=== PATIENT | male | born 1955 | race Caucasian/White ===

== ENCOUNTER 2016-09-30 05:31 | Inpatient (IN) | payer OTHER, MEDICAID ==
--- NOTE | 2016-09-28 13:08 | PCM.ANEPRE ---
Anesthesia Pre-Op Review Reason for Review: kidney function Anesthesia Recommendations: See Anesthesia Orders Additional Comments Stable CKD due to hypertension also has atrophic right kidney, last Cr 1.4. 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 No other preoperative issues. Patient's family concerned regarding IV solution's salt content during surgery. Not an issue with intraoperative LR/ Saline and his stable renal function. Benny Valentino MD Sep 28, 2016 13:08
[2016-09-30] VITALS (23 sets, daily range): BP systolic 89–131; BP diastolic 42–78; PULSE 51–90; RESP 10–20; O2SAT 91–98
[~2016-09-30] VITALS: Ht 162.6 cm; Wt 83.1 kg
[~2016-09-30 05:31] MED LIST: AMLO5TAB2 PO; ATEN25TA PO; CHOL10008 PO; FLAX100038 PO; HYDR-3825 PO; LEVO75TA4 PO; OMEG1CAP56 PO; SIMV40TA5 PO; SODI650T PO; ZOLP5TAB6 PO
[2016-09-30] MEDS: Lactated Ringer's 1,000 ML IV SCH ×4 (05:57→10:00)
[2016-09-30] MEDS ORDERED: CeFAZolin Inj 2 GM in IV Premix 1 EACH IV ONE (06:00)
[2016-09-30] MEDS ORDERED: Clindamycin Inj 900 MG in IV Premix 1 EACH IV ONE (06:00)
[2016-09-30 06:55] LABS: BASOPHILS % (AUTO) 0.2 % (0-3); EOSINOPHILS % (AUTO) 3.3 % (0-5); Mean Corpuscular Hemoglobin 32.1 pg (27.0-35.0); Mean Corpuscular Volume 100.3 fL (81-100); NEUTROPHILS % (AUTO) 56.3 % (40-74); Platelet Count 177 bil/L (150-400)
--- NOTE | 2016-09-30 07:22 | PCM.HPANE ---
Patient Data Surgeon Admitting Provider: Attending Provider:Jean Claude Leonard MD Primary Care Physician:Keisha Other Provider:Enrrique Conde Anesthesia Reason for Visit Malignant Neoplasm Of Connective And Soft Tissue O Ht/WT & BMI Height (Feet): 5 Height (Inches): 4 Weight (Kilograms): 82.2 Body Mass Index 30.00 Allergies Uncoded Allergies: ADHESIVE TAPES (Allergy, Unknown, blisters, 03/12/16) Past Anesthesia History Anesthesia History: Denies:: Abnormal Airway, Anesthesia Reactions, Difficult Intubation, Fam Anesthesia Reaction, Fam Malignant Hypertherm, Malignant Hyperthermia Diabetes History Hx Diabetes?: No MRSA MRSA: No Medications Hypertension Medication: Yes Home Meds Incl Beta Sissy: Yes (atenolol) Date Beta Sissy Taken: Sep 29, 2016 Time Beta Sissy Taken: 1800 Reported Medications Flaxseed Oil ([place]-3 Flaxseed Oil)1,000 Mg Capsule1,000 Mg PO BID 09/28/16 [place]-3 Fatty Acids/Fish Oil ([place] 3 1,000 mg Softgel)1 Each Capsule1 Each PO BID 09/28/16 Zolpidem 5 Mg Tablet5 Mg PO HS PRN For Insomnia Ref 0 09/28/16 Cholecalciferol (Vitamin D3) (Vitamin D3)1,000 Unit Tab.chew1,000 Unit PO BID 09/28/16 Sodium Bicarbonate 650 Mg Tablet1,300 Mg PO TID 09/28/16 Simvastatin 40 Mg [id number] Mg PO HS 30 Days Ref 0 09/28/16 Levothyroxine 75 Mcg Wejmzx15 Mcg PO DAILY Ref 0 09/28/16 Hydrocodone-Acetaminophen 7.5-325 mg 1 Each Tablet1 Tablet PO TID PRN For Pain Ref 0 09/28/16 Atenolol 25 Mg Undipb36 Mg PO HS #30 TABLET Ref 0 09/28/16 Amlodipine 5 Mg Tablet5 Mg PO BID Ref 0 09/28/16 Discontinued Reported Medications Zolpidem (Ambien)5 Mg Tablet5 Mg PO HS PRN For Insomnia Ref 0 08/03/16 [place]-3/Dha/Epa/Fish Oil (Fish Oil 1,000 mg Softgel)1 Each Capsule1 Each PO BID 04/19/16 Flaxseed Oil ([place]-3 Flaxseed Oil)1,000 Mg Capsule1,000 Mg PO BID 04/19/16 Simvastatin 40 Mg Skhjyr21 Mg PO HS Ref 0 03/12/16 Cholecalciferol (Vitamin D3) (Vitamin D3)2,000 Unit Capsule2,000 Unit PO BID 02/20/16 Sodium Bicarbonate 650 Mg Tablet2 Tab PO TID 02/20/16 Levothyroxine 75 Mcg Troabr37 Mcg PO DAILY Ref 0 02/20/16 Hydrocodone-Acetaminophen 7.5-325 mg 1 Each Tablet1 Tablet PO BID-TID Ref 0 02/20/16 Atenolol 25 Mg [id number] Mg PO DAILY #30 TABLET Ref 0 02/20/16 Amlodipine 5 Mg Tablet5 Mg PO BID Ref 0 02/20/16 History History of ENT Problems?: No HEENT History: Denies:: Abnormal Airway Difficult Intubation Dysphagia Hearing Problem Sinus Problem Hx of Heart Problems?: Yes Cardiovascular History: Positive for:: Hypertension Denies:: AICD Atrial Fibrillation Cardiac Surgery Chest Pain Congestive Heart Failure Edema Heart Murmur Irregular Heartbeat Pacemaker Rheumatic Fever Thrombophlebitis Valvular Heart Disease Other Cardiac History: port in place- recent chemotherapy Hx of Respiratory Problem?: No Respiratory History: Denies:: Asthma COPD Chest Surgery Cough Dyspnea Emphysema Hemoptysis Oxygen Administration Pneumonia Tuberculosis Use of C-PAP Machine Hx Neurologic Problems?: No Neurological History: Denies:: Alzheimer's Disease CVA Dementia Dizziness Headaches Parkinson's Disease Seizures Hx of GI Problems?: No Gastrointestinal History: Denies:: Cirrhosis Diverticulitis Gastroesphageal Reflux Gastrointestinal Bleeding Heartburn Hepatitis Hiatal Hernia Rectal Bleeding Hx of Problems?: Yes Genitourinary History: Denies:: HX of Hemodialysis (CKD stage III, atrophic right kidney/ left kidney 50%) Kidney Stones Urinary Tract Infection Other Pertinent History: congential bladder extrophy with reconstruction- urinary diversion to sigmoid colon. Reconstructed penis- DOES NOT URINATE thru penis Male Hx: Denies:: Prostate Problems Skin History: Denies:: History Skin Disorders? Pressure Ulcers Hx Musculoskeletal Problems?: Yes Musculoskeletal History: Positive for:: Back Injury (chronic back pain) Musculoskeletal Trauma (hx of left leg ORIF- ) Denies:: Joint Replacement Hx of Psycho/Social Problems?: Yes Psycho Social History: Positive for:: Hx Depression Denies:: Anxiety Hx Surgeries?: Yes (Leg, arm/plates, and ankle/pins all left. urinary diversion to sigmoid) Hx Any Other Health Problems?: Yes Other History: Positive for:: Cancer (recurrent suprapubic , bladder) Hospitalization Thyroid Disease Denies:: Endocrine Disease History Blood Transfusions: Denies:: Blood Transfusions Hx Diabetes: No Hx Alcohol Use: NoHx Substance Use: No Smoking Status: Former Smoker Have You Smoked inLast 12 mo: No Stop/Bang S-Snoring: Do You Snore Loudly: No T-Tired: feel tired, fatigued: No O-Obsered: Observed not breath: No P-Blood Pressure: treated: Yes B- Body Mass Index > 35 kg/m2: No A- Age over 50: Yes N- Neck Large Circumference: No G- Gender Male: Yes PARMJIT Total Score: 3 Risk Assessment Category Category 1A: Patient has history of documented sleep apnea, and HAS NOT received any narcotic, sedative or anesthesia administration during this stay. Category 1B: Patient has history of documented sleep apnea, and HAS received any narcotic , sedative or anesthesia administration during this stay Category 2: Patient has SUSPECTED Obstructive Sleep Apnea, and HAS received any narcotic , sedative or anesthesia administration during this stay. Category 3: Patient has SUSPECTED Obstructive Sleep Apnea and HAS NOT received narcotic, sedative or anesthesia administration during this stay. Category 4: Outpatient in Procedural Areas with known sleep apnea or who screen positive for High Risk via the STOP/BANG questionnaire. Exam Exam Vital Signs Vital Signs Date Time Temp Pulse Resp B/P Pulse Ox O2 Delivery O2 Flow Rate FiO2 09/30/16 06:10 36 60 16 127/74 92 Room Air General Appearance: Alert, Oriented X3, Cooperative HEENT/AIRWAY: MP 2, Neck Movement (from), Mouth Opening (wnl) Lungs: Clear to Auscultation Heart: Exam Unremarkable Meds/Labs/Diagnostics Admission Meds Current Medications Lactated Ringer's (Lr) 1,000 ml @ 120 mls/hr Q8H20M IV Last administered on t 05:57; Start 09/30/16 at 05:00; Stop 09/30/16 at 13:19 Labs Test 09/30/16 06:40 White Blood Count 5.2th/mm3 (3.8-10.1) Red Blood Count 3.74mil/mm3 (4.40-5.80) Hemoglobin 12.0g/dL (13.8-17.2) Hematocrit 37.5% (41.0-50.0) Mean Corpuscular Volume 100.3fL (81-100) Mean Corpuscular Hemoglobin 32.1pg (27.0-35.0) Mean Corpuscular Hemoglobin Concent 32.0% (32.0-37.0) Red Cell Distribution Width 12.0% (12.3-15.4) Platelet Count 177bil/L (150-400) Neutrophils (%) (Auto) 56.3% (40-74) Lymphocytes (%) (Auto) 29.0% (14-46) Monocytes (%) (Auto) 11.0% (4-12) Eosinophils (%) (Auto) 3.3% (0-5) Basophils (%) (Auto) 0.2% (0-3) Plan Impression Patient chart reviewed, patient interviewed and anesthestic plan with risks, benefits, and alternatives discussed, and informed consent obtained. NPO Status: 09/30/16 sip water with pills ASA Physical Status: ASA2 Mod Systemic Disease Anesthetic Plan: GA Bene/Risks/Altern/Consents: Yes HP Complete Prior to Induction: Yes Other There is a 51% chance a flap is not done per surgeon. If Flap is done patient the plan is to put in epidural in PACU for post op pain. Vinicio Rivera MD Sep 30, 2016 07:21
[2016-09-30] MEDS ORDERED: Acetaminophen IV 1,000 MG in IV Premix 1 EACH IV PRN (08:00)
[2016-09-30] MEDS ORDERED: hydrOXYzine Inj 50 MG/1 mL SDV IM PRN (09:20)
[2016-09-30] MEDS ORDERED: Atropine 0.4 mg/mL Inj IVPUSH PRN (09:20)
[2016-09-30] MEDS ORDERED: Phenylephrine 10,000 mCg/mL Inj IVPUSH PRN (09:20)
[2016-09-30] MEDS ORDERED: hydrALAZINE 20 mg/mL Inj IVPUSH PRN (09:20)
[2016-09-30] MEDS ORDERED: fentaNYL-PF 50 mCg/mL 2 mL Inj IVPUSH PRN (09:20)
[2016-09-30] MEDS ORDERED: HYDROmorphone 1 mg/mL Inj IVPUSH PRN (09:20)
[2016-09-30] MEDS ORDERED: EPHEDrine Sulfate 50 mg/mL Inj IVPUSH PRN (09:20)
[2016-09-30] MEDS ORDERED: Labetalol 5 mg/mL 4 mL Inj IV PRN (09:20)
[2016-09-30] MEDS ORDERED: Dexamethasone 4 mg/mL Inj IVPUSH PRN (09:20)
[2016-09-30] MEDS ORDERED: Ondansetron 2 mg/mL 2 mL Inj IVPUSH PRN ×2 (09:20→10:50)
[2016-09-30] MEDS ORDERED: EPHEDrine Sulfate 50 mg/mL Inj IM PRN (09:20)
[2016-09-30] MEDS ORDERED: Lactated Ringer's 500 ML IV PRN (09:20)
[2016-09-30] MEDS ORDERED: MetoCLOpramide 5 mg/mL 2 mL Inj IVPUSH PRN (10:50)
[2016-09-30] MEDS ORDERED: HYDROmorphone PCA 0.2 mg/mL 30 mL Inj IV PRN (10:55)
[2016-09-30] MEDS ORDERED: HYDROmorphone 0.5 mg/0.5 mL iSecure Syringe IVPUSH PRN (10:55)
--- NOTE | 2016-09-30 11:07 | PCM.SURGOP ---
Surgical Operative Report Date of Service: Sep 30, 2016 Pre Operative Diagnosis Bladder remnant carcinoma, history of bladder exstrophy Post Operative Diagnosis Same Procedure: Penectomy with en bloc excision of abdominal wall carcinoma, abdominal wall reconstruction with mesh Surgeon and Educational Speech Language Clinician: Surgeon: Daniele Souza MD Assistants: Jean Claude Leonard MD; Taisha Olivares PA-C Indication for Procedure 61-year-old man who was born with bladder exstrophy, and underwent resection of the bladder with abdominal wall reconstruction, as well as ureteral implantation into his sigmoid colon. He then presented with an abdominal wall mass, and this was partially excised with an R1 resection by Dr. Margarita Huntley. 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 He was then treated with chemotherapy with carboplatin and Taxol, but there was no significant clinical response. He had a PET/CT which demonstrated a 6 cm hypodense mass in the area of prior resection down to the penile base with hypermetabolic activity measuring 10.3. After discussion of risks and benefits , he agreed to proceed with excision of his abdominal wall tumor, possible penectomy. Dr. Leonard was involved for possible abdominal wall reconstruction with a rotational myocutaneous flap if necessary. Findings: Frozen sections from lateral, superior, posterior, and skin margins were all negative. The abdominal wall defect measured 8 cm transverse by 10 synovators craniocaudal. The tumor was clinically adherent to the base of the penis and urethra, so penectomy was performed en bloc. Procedure Details After smooth induction of general endotracheal anesthesia, he was placed in the supine position with both arms out, and was prepped and draped in wide sterile fashion. A procedural pause was performed according to the SCOAP checklist, and all were found to be in agreement. Dissection began with an elliptical skin incision, encompassing the prior sinus tract and scar, down to the base of the penis. Skin flaps were raised laterally on both sides. Dissection was carried out through the subcutaneous tissue superiorly. The preperitoneal space was entered, where there was quite a bit of adhesive disease from his prior abdominal wall reconstruction. The sigmoid colon was not visualized. Dissection carried down inferiorly on both sides to the pubic bone. There was quite a bit of vascularity toward the penis on both sides of the pubic bone, controlled with hemoclips, but there was a moderate amount of blood loss during this portion of dissection. Inferiorly, dissection was difficult on the base of the penis, and there was no obvious plane of safe dissection between the penis and the tumor. The spermatic cord structures were visualized and preserved on both sides inferiorly. Because the tumor was clinically adherent with no clear plane between it and the urethra and corpora cavernosa, the decision was made to proceed with penectomy. The corpora were encircled on both sides with clamps. The corpora was divided, and mass ligated with an 0 silk suture ligature on both sides. The vas deferens was dissected free on both sides. The end of the vas was ligated on both sides with an 0 silk suture, and it was divided. The urethra was dissected free from the subcutaneous tissues, which ultimately was a blind-ending structure, although small amount of urethral tissue was left in the preperitoneal space. The staying side was ligated with an 0 silk suture. The skin incision was extended around the base of the penis on the scrotal side circumferentially. Using electrocautery, dissection was carried through the subcutaneous tissue down to the perineal body, which was divided with cautery. En bloc dissection was carried out on all sides until the mass was circumferentially dissected free from the preperitoneal space, and complete penectomy had been performed. Frozen sections were obtained. The specimen was oriented personally with Dr. Noel. Frozen sections were obtained from both lateral aspects, posterior tissue, and the skin edges. All frozen sections were negative for carcinoma. The fascial defect from the edge of his prior abdominal wall reconstruction superiorly down to the perineal body was 10 cm craniocaudal, and the transverse defect from one pubic bone to the other was 8 cm transverse. Reconstruction was performed using the 4.5 inch (11.4 cm circular) Ventralight mesh. This was sutured to the perineal body, the pubic bone, and the edge of his abdominal wall fascial tissue circumferentially using interrupted 0 Nurolon sutures. The mesh was in excellent position. A 19 [place] round Nikhil drain was brought out through the skin on the left side of the scrotum, and secured to the skin with a 3-0 nylon suture. The subcutaneous tissue was irrigated and suctioned. At this point, Dr. Leonard performed complex layered closure of the abdominal wall and scrotum. Please see his separate dictated operative report for full details of the procedure. The abdominal wall incision and scrotum were closed in a Z-plasty. The skin incision was closed with a 4-0 Monocryl running subcuticular stitch. Dermabond was applied to the skin as a dressing. At the end of the case all needle and sponge counts were correct 2. The patient was awakened from anesthesia without difficulty, and taken to the recovery room in satisfactory condition, having tolerated the procedure well. Complications There were no periprocedural complications identified. Surgical Specimen Removed: Yes Specimen sent to Pathology: Yes Surgical Specimen description: Penectomy with en bloc resection of abdominal wall tumor Anesthetic Plan: GA Grafts, Implants: Implants-See Implant Record Output, Estimated Blood Loss: 250 Blood Administration during jaimes: No Drains: CLARIBEL Drain #1 Catheters: None copies to: Demond Brewster MD; Krysten Yusuf PA-C; Margarita Huntley MD, Joshua D MD Sep 30, 2016 11:07
[2016-09-30] MEDS ORDERED: Bupivacaine 0.5%/EPI 50 mL Inj INFILTRATE ONE (11:12)
--- NOTE | 2016-09-30 12:05 | PCM.ANEP1 ---
Post Anesthesia Phase 1 PACU Phase 1 Assessment Date of Service: Sep 30, 2016 Vital Signs Vital Signs Date Time Temp Pulse Resp B/P Pulse Ox O2 Delivery O2 Flow Rate FiO2 09/30/16 11:55 36.3 51 11 93/52 96 Nasal Cannula 2 09/30/16 11:50 53 14 98/52 96 Nasal Cannula 2 09/30/16 11:45 58 12 96/55 96 Nasal Cannula 2 09/30/16 11:35 60 16 98/56 95 Nasal Cannula 2 09/30/16 11:33 70 12 91 Room Air 09/30/16 11:30 36.5 56 10 94/50 96 Simple Mask 8 09/30/16 11:25 59 11 95/48 96 Simple Mask 8 09/30/16 11:20 67 12 98/54 95 Simple Mask 8 09/30/16 11:14 71 15 89/53 95 Simple Mask 8 09/30/16 11:10 85 17 89/57 94 Simple Mask 8 09/30/16 11:07 36.5 80 14 109/42 94 Simple Mask 8 09/30/16 06:10 36 60 16 127/74 92 Room Air Anesthetic Administered: GA Level of Alertness: Awake, talking AGUILAR's with Equal Strength: Yes Pain: Yes Pain Scale Score: 3 Nausea or Vomiting: No Oxygen Delivery: Simple Mask Lungs: Clear to Auscultation, Normal Air Movement Vinicio Rivera MD Sep 30, 2016 12:05
[2016-09-30] MEDS ORDERED: Atropine 0.4 mg/mL Inj ONE (13:05)
[2016-09-30] MEDS ORDERED: Phenylephrine/NS 100 mCg/mL 10 mL Syringe IVPUSH ONE (13:05)
[2016-09-30] MEDS ORDERED: Neostigmine 1 mg/mL 10 mL Inj ONE (13:05)
[2016-09-30] MEDS ORDERED: fentaNYL-PF 50 mCg/mL 2 mL Inj ONE (13:05)
[2016-09-30] MEDS ORDERED: Propofol 10,000 mCg/mL 20 mL Inj ONE (13:05)
[2016-09-30] MEDS ORDERED: Glycopyrrolate 0.2 MG/ML 1mL Inj ONE (13:05)
[2016-09-30] MEDS ORDERED: Ondansetron 2 mg/mL 2 mL Inj ONE (13:05)
[2016-09-30] MEDS ORDERED: Dexamethasone 4 mg/mL Inj ONE (13:05)
[2016-09-30] MEDS: Dextrose 5% Lactated Ringer's 1,000 ML IV SCH ×2 (13:33→21:56)
--- NOTE | 2016-09-30 13:59 | PCM.ANEP2 ---
Post Anesthesia Evaluation ASA/CMS Post Anesthesia VS in Patient's Normal Range?: Yes Resp Stable; Airway Patent?: Yes CV Function & Hydration Stable: Yes Mental Status Recovered?: Yes Pain control Satisfactory?: Yes N/V Control Satisfactory?: Yes Vinicio Rivera MD Sep 30, 2016 13:59
--- NOTE | 2016-09-30 16:08 | NUR ---
POST OP Patient arrived to room 1030 on OR [facility]. Was able to scoot transfer self to hospital bed in room. Alert and oriented, answering all questions. On 2 LPM O2 when arrived. VSS, taken while patient was on RA, O2 sats 93%. CLARIBEL drain to L scrotum/groin, draining sanguineous fluid. Mid lower abdominal incision is well approximated, no dressing. SCDs in place. IV fluids running, Dilaudid MUSTANGER initated and explained to patient how it works. Verbalized understanding. Initially rated pain a 5/10, which was tolerable for him. Care continues.
[2016-09-30] MEDS: Heparin 5,000 Unit/mL Inj SUBQ SCH (17:38)
[2016-09-30] MEDS: Insulin LISPRO Low-Dose Scale SUBQ SCH (21:49)
[2016-09-30] MEDS: Omega-3 Fatty Acids 1,000 mg Capsule PO SCH (21:59)
[2016-09-30] MEDS: Famotidine Inj 20 MG in IV Premix 1 EACH IV SCH (22:01)
[2016-10-01 00:43] VITALS: BP 121/69; PULSE 86; RESP 18; O2SAT 96
[2016-10-01] MEDS: Heparin 5,000 Unit/mL Inj SUBQ SCH ×3 (00:59→18:08)
[2016-10-01 01:11] VITALS: RESP 16; O2SAT 94
--- NOTE | 2016-10-01 04:10 | NUR ---
Activity Pt. ambulated around hallway and did well. Pt. has been drinking water okay with no emesis noted. Pt. reports CHOCOLATE TEMPERER Dilaudid effective for controlling pain. Will continue to monitor.
[2016-10-01 05:51] VITALS: RESP 16; O2SAT 95
[2016-10-01] MEDS: Dextrose 5% Lactated Ringer's 1,000 ML IV SCH (06:05)
[2016-10-01 06:43] LABS: BASOPHILS % (AUTO) 0 % (0-3); EOSINOPHILS % (AUTO) 0 % (0-5); MONOCYTES % (AUTO) 11.9 % (4-12); Mean Corpuscular Hemoglobin 32.2 pg (27.0-35.0); NEUTROPHILS % (AUTO) 74.4 % (40-74); Platelet Count 174 bil/L (150-400)
--- NOTE | 2016-10-01 07:05 | NUR ---
Dr. Souza at bedside Dr. Souza at bedside, stated the hat in patient's commode can be removed due to patient urinating and having stools from rectum and there is quite a bit of splash back, do not need to record actual amounts of urine/stool as this has not been an issue and there is more a concern of infection to incision with the splash back. Stated patient's PHYSICAL SCIENTIST pump will be discontinued and IV fluids will be discontinued as well.
[2016-10-01] MEDS: Insulin LISPRO Low-Dose Scale SUBQ SCH ×4 (07:30→21:40)
--- NOTE | 2016-10-01 08:48 | PROG NOTE ---
[address] [address] PROGRESS NOTE PATIENT: JAYANT BROWN : 1955 MR#: [id number] ADMIT: 09/30/2016 JOB ID: [id number] DATE: 10/01/2016 SUBJECTIVE: The patient is seen in followup. He feels very good. He has minimal pain and is not using the SHOP STEWARD often. He has no nausea. He is having both stool and urine output from the rectum as expected. He has been ambulating in the halls, three times already today. OBJECTIVE: Temperature 36.7, pulse 86, respirations 16, blood pressure 121/69, saturation 96% on 2 liters nasal cannula. General: He is resting in bed in no acute distress. Chest is clear. Heart: Regular rate and rhythm. No murmurs. Abdomen: Low abdominal Z-plasty incision is well approximated with no erythema. There is no fluctuance. His CLARIBEL drain is intact with sanguinous output, 65 cc overnight. LABORATORIES: White blood cell count is 9.2, hemoglobin 9.6, hematocrit 30.1, platelets 174. Creatinine 1.39, glucose 126. ASSESSMENT AND PLAN: A 61-year-old man with bladder remnant carcinoma, status post penectomy with en bloc resection of abdominal wall tumor, with reconstruction with mesh and abdominal wall closure with a Z-plasty local advancement. He is doing very well. He has acute postoperative blood loss anemia, which is mild. That will be monitored, but he does not need blood transfusion. His diet can be advanced. SHOP STEWARD will be discontinued. He will be placed on oral pain medications. His IV fluids can be turned off. He is hopeful that he can go home from the hospital today. The remaining issue is weaning him from oxygen. He will continue to use his incentive spirometer. If by early afternoon his oxygen saturations are good on room air, it is conceivable he could be discharged to home today, otherwise he will stay for one more night. MICHELLE
[2016-10-01] MEDS: Omega-3 Fatty Acids 1,000 mg Capsule PO SCH ×2 (10:16→20:30)
[2016-10-01] MEDS: Famotidine Inj 20 MG in IV Premix 1 EACH IV SCH (10:16)
[2016-10-01 10:20] VITALS: BP 129/71; PULSE 76; RESP 17; O2SAT 94
--- NOTE | 2016-10-01 10:40 | NUR ---
Amlodipine Paged Dr. Souza at [phone] to restart patient's home medication Amlodipine, as patient requested, was only able to leave return phone number for contact at this time.
--- NOTE | 2016-10-01 10:42 | NUR ---
Return call from OR Received return call on Dr. Souza behalf, was told the message regarding Amlodipine will be forwarded to Dr. Souza, but this may take several hours due to him being in the OR at this time.
--- NOTE | 2016-10-01 14:38 | PCM.PHAPRO ---
Progress IV TO PO SWITCH 61 y/o male on general diet and on other PO scheduled meds Switching famotidine 20mg IV BID to famotidine 20mg PO BID. Janey Can Pharm.D Oct 01, 2016 14:38
[2016-10-01 14:46] VITALS: BP 121/72; PULSE 54; RESP 17; O2SAT 94
--- NOTE | 2016-10-01 16:38 | NUR ---
Social Work Note: Screen Note Data& Assessment: EMR reviewed. Patient is a 61 year old male admitted on 10/01/16 for Malignant neoplasm of connective and SOF. Pt has PW HO for insurance coverage and has no primary care physician. Pt lives in [place] with family. Pt is currently SBA in her room. No discharge needs identified at this time. SW to continue to follow if any needs arise. Plan: Anticipated discharge home via POV when medically ready. No discharge needs identified at this time. SW to continue to follow if any needs arise. Anais Cummings, XOCHILT, ACM
--- NOTE | 2016-10-01 17:00 | OP ---
[address] [address] OPERATIVE REPORT PATIENT: JAYANT BROWN : 1955 MR#: [id number] ADMIT: 09/30/2016 JOB ID: [id number] DATE OF SURGERY: 09/30/2016 PREOPERATIVE DIAGNOSIS(ES): Perineal and suprapubic defect, 8 cm x 10 cm. POSTOPERATIVE DIAGNOSIS(ES): PROCEDURE: Complex closure of suprapubic and perineal defect, total length of complex closure 17 cm. SURGEON: Jean Claude Leonard MD. HOSPITAL LABORATORY TECHNICIAN: Yanci Olivares PA-C, as well as Dr. Daniele Souza were present for necessary retraction, exposure, and assistance in closure. ANESTHESIA: General anesthesia. ESTIMATED BLOOD LOSS: Minimal for plastic surgery portion of the procedure. COMPLICATIONS: None apparent. SPECIMEN: None. 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 The patient underwent wide local excision and penectomy. The defect extended all the way down into the abdominal cavity through the abdominal wall. The abdominal wall was reconstructed with a mesh by Dr. Souza. After abdominal wall reconstruction, the patient had a soft tissue defect in this area that measured approximately 10 cm in the anterior posterior dimension and 8 cm transversely. The skin edges were irregular. Overall, the defect looked like a [id number]-kr-wvfld. I made two transverse incisions along the skin edge to allow each corner of the skin protuberant on each side to be able to be inset into the opposite side in a Y to V manner. This allowed the overall incision to be reapproximated without excising any more skin and soft tissue. A #15 round Nikhil drain was then placed into the cavity superficial to the mesh. The deep soft tissue was then reapproximated first with a layer of 3-0 Vicryl jpbwlx-io-chivb sutures. Once this has been done, the intermediate soft tissue was reapproximated with several 3-0 Vicryl pjqwzj-rp-lxnzo sutures. A layer of 3-0 Monocryl deep dermal sutures was then placed, followed by 4-0 Monocryl running subcuticular suture. At the end of closure the length of the closure was measured to be 16 cm. The patient tolerated the procedure well. Needle count, sponge count, instrument counts were correct at the end of the procedure. The patient was extubated and transported to recovery in stable condition.
--- NOTE | 2016-10-01 18:06 | PCM.DISURG ---
Surgical Discharge Instruction Date of Service Oct 01, 2016 Dates of Hospitalization Date of Hospital Admission Sep 30, 2016 at 13:23 Providers Admitting Physician: Jean Claude Leonard MD Primary Care Physician: Nopgilmar Attending Physician: Jean Claude Leonard MD Discharge Diagnosis Discharge Diagnosis bladder remnant carcinoma Post Operative diagnosis Same Diet Discharge Diet: No restrictions Activity Discharge Activity-General: No lifting >15 pounds for 2 weeks Dressing and Incisional Care Hygiene: May shower Additional Instructions Discharge Instructions Call the surgery clinic when CLARIBEL output is less than 30mL in 24 hours, and the drain can be removed at that time. Follow Up Plan Follow Up Plan with Dr. Souza in 2 weeks Call your provider for: Fever (over 101.5F), Vomiting, Discharge @ incision, pus discharge Daniele Souza MD Oct 01, 2016 18:06
[2016-10-01] MEDS ORDERED: HYDR-3825 PO (18:09)
[2016-10-01] MEDS: HYDROcodone-APAP 7.5-325 mg Tablet PO PRN (19:26)
[2016-10-01 19:57] VITALS: BP 131/65; PULSE 76; RESP 20; O2SAT 96
[2016-10-02] MEDS: Heparin 5,000 Unit/mL Inj SUBQ SCH ×2 (00:06→08:30)
[2016-10-02 00:20] VITALS: BP 99/60; PULSE 61; RESP 18; O2SAT 99
--- NOTE | 2016-10-02 03:30 | NUR ---
Pain Pt. reported some moderate pain 5/10. [place] PO given, and pt. reassessment score was 2/10. [place] PO seems to be effective. Will continue to monitor.
[2016-10-02 04:34] VITALS: BP 115/66; PULSE 58; RESP 18; O2SAT 94
[2016-10-02] MEDS: Insulin LISPRO Low-Dose Scale SUBQ SCH ×2 (07:30→11:30)
--- NOTE | 2016-10-02 08:12 | PCM.PNSURG ---
Subjective Visit Information: Reason for Visit Malignant Neoplasm Of Connective And Soft Tissue O Surgery/Surgery Date ABD TUMOR EXCISION 09/30/16 Post-Op Day # Date of Admission: Sep 30, 2016 at 13:23 Hospital Day # Subjective: on a little bit of oxygen, doing fine, been walking, CLARIBEL in place Objective Objective Awake in bed Incision clean CLARIBEL --> serosang Vital Sign- Last 8 Hours Date Time Temp Pulse Resp B/P Pulse Ox O2 Delivery O2 Flow Rate FiO2 10/02/16 04:34 36.6 58 18 115/66 94 Nasal Cannula 2.00 10/02/16 00:32 Supplement Oxygen 10/02/16 00:20 36.8 61 18 99/60 99 Nasal Cannula 2.00 Intake and Output- Last 8 Hour 10/02/16 Cumulative From/Thru 07:00 09/28/16 09:41 - 10/02/16 06:17 Intake Total 400 ml 8969 ml Output Total 30 ml 3155 ml Balance 370 ml 5814 ml Intake Oral 400 ml 4780 ml IV Total 4189 ml Output Urine Total 150 ml Urine/Stool Mix 2500 ml Drainage Total 30 ml 205 ml Estimated Blood Loss 300 ml # Voids 2 7 # Bowel Movements 2 Result Diagram: 10/01/16 0605 10/01/16 0605 Assessment & Plan Impression s/p low abd wall CA excision and removal of penis Problems: Plan OK to d/c home with CLARIBEL drain F/U with Dr. Souza in 2 weeks Rx: vicodin ES (#30) Julio Cesar Huntley MD Oct 02, 2016 08:12
[2016-10-02] MEDS: Omega-3 Fatty Acids 1,000 mg Capsule PO SCH (08:52)
[2016-10-02] MEDS: HYDROcodone-APAP 7.5-325 mg Tablet PO PRN (10:28)
--- NOTE | 2016-10-02 13:29 | NUR ---
discharged home with family. Pt was taught how to care for his CLARIBEL drain, and asked to record daily output, he will notify Dr Souza office when output is 30cc or less. will have f/u appt in [address] Souza clinic. Pt is eating/drinking, good pain control, ambulating in morel
--- NOTE | 2016-10-05 08:34 | PCM.DC.SUR ---
Discharge Summary Date of Service: Date of Hospital Admission: Sep 30, 2016 at 13:23 Date of Operation(s): 09/30/2016 09/30/2016 Date of Discharge: 10/02/2016 Diagnosis at Time of Discharge Primary diagnoses: 1. Bladder remnant carcinoma, history of bladder exstrophy. 2. Perineal and suprapubic defect, 8 cm x 10 cm. 3.. Perioperative acute blood loss anemia. Other chronic conditions: 1. History of bladder adenocarcinoma 2. History of abdominal wall cellulitis 3. Stage III chronic renal disease 4. Ectopic bladder, extrophy bladder 5. Hyperglycemia 6. Benign hypertension 7. Acquired hypothyroidism 8. Kyphosis 9. Scoliosis 10. Former cigarette smoker Problems: Operation 1. Complex closure of suprapubic and perineal defect, total length of complex closure 17 cm. 2. Penectomy with en bloc excision of abdominal wall carcinoma, abdominal wall reconstruction with mesh Brief History and Physical: The patient is a 61-year-old man who was born with bladder exstrophy, and underwent resection of the bladder with abdominal wall reconstruction, as well as ureteral implantation into his sigmoid colon. He then presented with an abdominal wall mass, and this was partially excised with an R1 resection by Dr. Margarita Huntley. 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 He was then treated with chemotherapy with carboplatin and Taxol, but there was no significant clinical response. He had a PET/CT which demonstrated a 6 cm hypodense mass in the area of prior resection down to the penile base with hypermetabolic activity measuring 10.3. Dr. Leonard was involved for possible abdominal wall reconstruction with a rotational myocutaneous flap if necessary. Consultants: Plastics Hospital Course: The patient was admitted and underwent the above-mentioned operations without complication. The following morning she was passing both stool and urine per rectum as expected. Z-plasty was viable. He was not transfused for postsurgical acute blood loss anemia, oxygen was weaned, diet was advanced on the first postsurgical day. By the second postsurgical day he was using very little oxygen, and had transitioned to oral analgesic. He was stable for discharge from the hospital on the second postsurgical day. Pathology: Pending Disposition: The patient was discharged to home on his second postsurgical day. At the time of discharge all flaps were viable, the patient was tolerating pain on oral analgesic, he was eating solid foods without difficulty, and ambulating without assistance. Follow-up Plan: He will follow-up in the office with Dr. Souza in 2 weeks. Amlodipine (Amlodipine) 5 Mg Tablet 5 MG PO BID (Reported) Atenolol (Atenolol) 25 Mg Tablet 25 MG PO HS (Reported) Cholecalciferol (Vitamin D3) (Vitamin D3) 1,000 Unit Tab.chew 1,000 UNIT PO BID (Reported) Flaxseed Oil ([place]-3 Flaxseed Oil) 1,000 Mg Capsule 1,000 MG PO BID (Reported) Hydrocodone-Acetaminophen 7.5-325 mg (Hydrocodone-Acetaminophen 7.5-325 mg) 1 Each Tablet 1 TABLET PO Q6H PRN PRN For Pain Levothyroxine (Levothyroxine) 75 Mcg Tablet 75 MCG PO DAILY (Reported) [place]-3 Fatty Acids/Fish Oil ([place] 3 1,000 mg Softgel) 1 Each Capsule 1 EACH PO BID (Reported) Simvastatin (Simvastatin) 40 Mg Tablet 40 MG PO HS (Reported) Sodium Bicarbonate (Sodium Bicarbonate) 650 Mg Tablet 1,300 MG PO TID (Reported ) Zolpidem (Zolpidem) 5 Mg Tablet 5 MG PO HS PRN PRN For Insomnia (Reported) copies to: Demond Brewster MD; Krysten Yusuf PA-C, Fred H PA-C Oct 05, 2016 08:34
== END 2016-10-02 13:06 | disposition home or self-care (01) | DRG 317 ==
LOC: SAS 05:31 → OSC 13:23 → SAS 13:23 → OSC 13:23
PROVIDERS: ADMIT Plastic Surgery; ATTEND Plastic Surgery
PROC: 0VTS0ZZ Resection of Penis, Open Approach (ICD-10-PCS; 2016-09-30)
PROC: 0WUF0JZ Supplement Abdominal Wall with Synthetic Substitute, Open Approach (ICD-10-PCS; 2016-09-30)
PROC: 0WBF0ZZ Excision of Abdominal Wall, Open Approach (ICD-10-PCS; principal; 2016-09-30 07:15)
DX: C49.4 Malignant neoplasm of connective and soft tissue of abdomen (principal); D62 Acute posthemorrhagic anemia; N18.3 Chronic kidney disease, stage 3 (moderate); I12.9 Hypertensive chronic kidney disease with stage 1 through stage 4 chronic kidney disease, or unspecified chronic kidney disease; E03.9 Hypothyroidism, unspecified

== ENCOUNTER 2016-10-29 11:39 | Day surgery (SDC) | payer OTHER, MEDICAID ==
[~2016-10-29] VITALS: Ht 160 cm; Wt 80.7 kg
[2016-10-29] VITALS (9 sets, daily range): BP systolic 116–135; BP diastolic 64–80; PULSE 66–97; RESP 11–21; O2SAT 92–98
[~2016-10-29 11:39] MED LIST changes: +CeFAZolin Inj 2 GM in IV Premix 1 EACH IV ONE; -FLAX100038 PO; -OMEG1CAP56 PO; -ZOLP5TAB6 PO
[2016-10-29] MEDS ORDERED: EPHEDrine/NS 5 mg/mL 5 mL Syringe ONE (11:40)
[2016-10-29] MEDS ORDERED: Propofol 10,000 mCg/mL 20 mL Inj ONE (11:40)
[2016-10-29] MEDS ORDERED: fentaNYL-PF 50 mCg/mL 2 mL Inj ONE (11:40)
[2016-10-29] MEDS ORDERED: Ondansetron 2 mg/mL 2 mL Inj ONE (11:40)
[2016-10-29] MEDS ORDERED: Dexamethasone 4 mg/mL Inj ONE (11:40)
[2016-10-29] MEDS: Lactated Ringer's 1,000 ML IV SCH ×2 (12:31→13:53)
[2016-10-29] MEDS ORDERED: ZLP5T PO (12:32)
[2016-10-29] MEDS ORDERED: CeFAZolin Inj 2 gm / 50mL D5W IV ONE (12:37)
--- NOTE | 2016-10-29 13:45 | PCM.HPANE ---
Patient Data Date of Service: October 29, 2016 ([id number]) Surgeon Admitting Provider: Attending Provider:Daniele Souza MD Primary Care Physician:Krysten Yusuf PA-C Other Provider:Enrrique Conde Anesthesia Reason for Visit Excision Of Abdominal Wall Tumor With Closure Ht/WT & BMI Height (Feet): 5 Height (Inches): 3 Weight (Kilograms): 80.739 Body Mass Index 0.00 Allergies Uncoded Allergies: ADHESIVE TAPES (Allergy, Severe, blisters, 10/27/16) Past Anesthesia History Anesthesia History: Denies:: Abnormal Airway, Anesthesia Reactions, Difficult Intubation, Fam Anesthesia Reaction, Fam Malignant Hypertherm, Malignant Hyperthermia Diabetes History Hx Diabetes?: No MRSA MRSA: No Medications Hypertension Medication: Yes (AMLODIPINE) Home Meds Incl Beta Sissy: Yes (atenolol) Date Beta Sissy Taken: October 28, 2016 Time Beta Sissy Taken: 1800 Active Scripts Hydrocodone-Acetaminophen 7.5-325 mg 1 Each Tablet1 Tablet PO Q6H PRN For Pain # 30 TABLET Ref 0 Prov:Daniele Souza MD 10/01/16 Reported Medications Zolpidem (Ambien)5 Mg Tablet5 Mg PO HS PRN For Insomnia Ref 0 10/29/16 Cholecalciferol (Vitamin D3) (Vitamin D3)1,000 Unit Tab.chew1,000 Unit PO DAILY 09/28/16 Sodium Bicarbonate 650 Mg [id number] Mg PO TID 09/28/16 Simvastatin 40 Mg [id number] Mg PO HS 30 Days Ref 0 09/28/16 Levothyroxine 75 Mcg [id number] Mcg PO DAILY Ref 0 09/28/16 Atenolol 25 Mg [id number] Mg PO HS #30 TABLET Ref 0 09/28/16 Amlodipine 5 Mg Tablet5 Mg PO BID Ref 0 09/28/16 Discontinued Reported Medications Flaxseed Oil ([place]-3 Flaxseed Oil)1,000 Mg Capsule1,000 Mg PO BID 09/28/16 [place] Fatty Acids/Fish Oil ([place] 3 1,000 mg Softgel)1 Each Capsule1 Each PO BID 09/28/16 Zolpidem 5 Mg Tablet5 Mg PO HS PRN For Insomnia Ref 0 09/28/16 History History of ENT Problems?: No HEENT History: Denies:: Abnormal Airway Difficult Intubation Dysphagia Hearing Problem Sinus Problem Denture Type: None Teeth Condition: Within Normal Limits Hx of Heart Problems?: Yes Cardiovascular History: Positive for:: Hypertension (HYPERLIPIDEMIA) Denies:: AICD Atrial Fibrillation Cardiac Surgery Chest Pain Congestive Heart Failure Edema Heart Murmur Irregular Heartbeat Pacemaker Rheumatic Fever Thrombophlebitis Valvular Heart Disease Hx of Respiratory Problem?: No Respiratory History: Denies:: Asthma COPD Chest Surgery Cough Dyspnea Emphysema Hemoptysis Oxygen Administration Pneumonia Tuberculosis Use of C-PAP Machine Hx Neurologic Problems?: No Neurological History: Denies:: Alzheimer's Disease CVA Dementia Dizziness Headaches Parkinson's Disease Seizures Hx of GI Problems?: Yes Other GI Pertinent History: ABD WALL TUMOR=CURRENT PROBLEM S/P EXC ABD WALL TUMOR (DID NOT APPRECIATE GOOD MARGINS),PORTACATH Hx of Problems?: Yes Genitourinary History: Denies:: HX of Hemodialysis (CKD stage III, atrophic right kidney/ left kidney 50%) Kidney Stones Urinary Tract Infection Other Pertinent History: HX CONGENITAL BLADDER EXTROPHYS/P MULT BLADDER/URETHRA/SIGMOID SURGERIES,PENECTOMY,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 Pressure Ulcers Hx Musculoskeletal Problems?: Yes Musculoskeletal History: Positive for:: Back Injury (chronic back pain) Musculoskeletal Trauma (S/P LT LEG ORIF) Denies:: Joint Replacement Hx of Psycho/Social Problems?: Yes Psycho Social History: Positive for:: Hx Depression Denies:: Anxiety Hx Surgeries?: Yes (Leg, arm/plates, and ankle/pins all left. urinary diversion to sigmoid) Hx Any Other Health Problems?: Yes Other History: Positive for:: Cancer (recurrent suprapubic , bladder) Hospitalization Thyroid Disease Denies:: Endocrine Disease History Blood Transfusions: Denies:: Blood Transfusions Hx Diabetes: No Hx Alcohol Use: NoHx Substance Use: No Smoking Status: Former Smoker Have You Smoked inLast 12 mo: No Stop/Bang S-Snoring: Do You Snore Loudly: No T-Tired: feel tired, fatigued: No O-Obsered: Observed not breath: No P-Blood Pressure: treated: Yes B- Body Mass Index > 35 kg/m2: No A- Age over 50: Yes N- Neck Large Circumference: No G- Gender Male: Yes PARMJIT Total Score: 3 PARMJIT Risk Assessment: Low Risk, <3 Yes Risk Assessment Category Category 1A: Patient has history of documented sleep apnea, and HAS NOT received any narcotic, sedative or anesthesia administration during this stay. Category 1B: Patient has history of documented sleep apnea, and HAS received any narcotic , sedative or anesthesia administration during this stay Category 2: Patient has SUSPECTED Obstructive Sleep Apnea, and HAS received any narcotic , sedative or anesthesia administration during this stay. Category 3: Patient has SUSPECTED Obstructive Sleep Apnea and HAS NOT received narcotic, sedative or anesthesia administration during this stay. Category 4: Outpatient in Procedural Areas with known sleep apnea or who screen positive for High Risk via the STOP/BANG questionnaire. Exam Exam Vital Signs Vital Signs Date Time Temp Pulse Resp B/P Pulse Ox O2 Delivery O2 Flow Rate FiO2 10/29/16 12:24 35.6 66 16 124/64 97 Room Air General Appearance: Alert, Oriented X3, Cooperative HEENT/AIRWAY: MP 1 Lungs: Clear to Auscultation Heart: Exam Unremarkable Meds/Labs/Diagnostics Admission Meds Current Medications Lactated Ringer's (Lr) 1,000 ml @ 120 mls/hr Q8H20M IV Last administered on t 12:31; Start 10/29/16 at 05:00; Stop 10/29/16 at 13:19; Status DC Plan Impression Patient chart reviewed, patient interviewed and anesthestic plan with risks, benefits, and alternatives discussed, and informed consent obtained. NPO per Anesth. Guidelines: Yes ASA Physical Status: ASA2 Mod Systemic Disease Anesthetic Plan: GA Bene/Risks/Altern/Consents: Yes HP Complete Prior to Induction: Yes Magdi Watts MD October 29, 2016 13:45
[2016-10-29] MEDS ORDERED: Lactated Ringer's 500 ML IV PRN (13:46)
[2016-10-29] MEDS ORDERED: Lactated Ringer's 1,000 ML IV SCH (13:46)
[2016-10-29] MEDS ORDERED: Ondansetron 2 mg/mL 2 mL Inj IVPUSH PRN (13:50)
[2016-10-29] MEDS ORDERED: Dexamethasone 4 mg/mL Inj IVPUSH PRN (13:50)
[2016-10-29] MEDS ORDERED: Phenylephrine 10,000 mCg/mL Inj IVPUSH PRN (13:50)
[2016-10-29] MEDS ORDERED: HYDROmorphone 1 mg/mL Inj IVPUSH PRN (13:50)
[2016-10-29] MEDS ORDERED: EPHEDrine Sulfate 50 mg/mL Inj IVPUSH PRN (13:50)
[2016-10-29] MEDS ORDERED: fentaNYL-PF 50 mCg/mL 2 mL Inj IVPUSH PRN (13:50)
[2016-10-29] MEDS ORDERED: MetoCLOpramide 5 mg/mL 2 mL Inj IVPUSH PRN (13:50)
[2016-10-29] MEDS ORDERED: Bupivacaine-MPF 0.5% W/EPI 30 mL Inj INFILTRATE ONE (14:15)
[2016-10-29] MEDS ORDERED: HYDROcodone-APAP 5-325 mg Tablet PO PRN (15:20)
--- NOTE | 2016-10-29 15:22 | PCM.DISURG ---
Surgical Discharge Instruction Date of Service October 29, 2016 Dates of Hospitalization Date of Hospital Admission Providers Admitting Physician: Primary Care Physician: Krysten Yusuf PA-C Attending Physician: Daniele Souza MD Discharge Diagnosis Discharge Diagnosis Urachal remnant carcinoma Diet Discharge Diet: No restrictions Activity Discharge Activity-General: No restrictions Dressing and Incisional Care Dressing Instructions: Dermabond will peel off gradually Hygiene: May shower Follow Up Plan Follow Up Plan With Dr. Souza in surgery clinic in 2 weeks Call your provider for: Fever (over 101.5), Discharge @ incision, pus discharge Daniele Souza MD October 29, 2016 15:21
--- NOTE | 2016-10-29 15:24 | PCM.ANEP1 ---
Post Anesthesia Phase 1 PACU Phase 1 Assessment Date of Service: October 29, 2016 ([id number]) Vital Signs 37.1, 135/80, 100%, 14, 99 Vital Signs Date Time Temp Pulse Resp B/P Pulse Ox O2 Delivery O2 Flow Rate FiO2 10/29/16 12:24 35.6 66 16 124/64 97 Room Air Anesthetic Administered: GA Level of Alertness: Awake, talking AGUILAR's with Equal Strength: Yes Pain: No Nausea or Vomiting: No Cardiovascular Function and Hy: Yes Oxygen Delivery: Simple Mask Lungs: Clear to Auscultation Dermatome Level: Full Sensation Summary uneventful GA Complications: No Follow up Care: No Magdi Watts MD October 29, 2016 15:24
--- NOTE | 2016-10-29 15:28 | PCM.SURGOP ---
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 He underwent an initial incisional biopsy, followed by debulking surgery, followed by chemotherapy, followed by an attempt to completely excise the tumor with en bloc penectomy on 09/30/2016. Frozen sections during that operation were negative, but the final margin was positive focally on the right anterolateral aspect, all other margins were negative. He had a T3 tumor. After discussion of risks and benefits, he agreed to proceed with reexcision of the right anterolateral margin. Findings: Frozen sections were negative. There was no gross residual disease by palpation. There was a small to moderate seroma. Procedure Details After smooth induction of general anesthesia, he was placed in the supine position, and was prepped and draped in wide sterile fashion. A procedural pause was performed according to the SCOAP checklist, and all were found to be in agreement. His prior Z-plasty incision was reopened by making a new skin incision, but following the Z-plasty lines, with some skin on the right side being excised. The skin was excised off the underlying soft tissue, and was sent for frozen section analysis, which was negative. Skin flaps were then raised on the right side by elevating the normal skin off the underlying subcutaneous fat. There was a small to moderate seroma under the subcutaneous tissue superiorly, and once this was evacuated, the prior mesh was exposed. The mesh looked normal, without evidence of mesh infection. Dissection was then carried out, excising all remaining superficial soft tissue on the right with electrocautery, to where the spermatic cord structures were encountered in the inguinal canal. The deep margin of dissection was the seroma cavity abutting the mesh. The tissue was oriented with suture, labeled as right anterolateral margin, and sent for frozen section analysis. Multiple frozen sections were obtained from the lateral and anterior aspect, which were negative. Hemostasis was adequate. The soft tissue was easily reapproximated with no tension using interrupted 3- 0 Vicryl sutures. The skin Z-plasty incision was reclosed using running 4-0 Monocryl subcuticular suture. Dermabond was applied to the skin as a dressing. At the end the case all needle and sponge counts were correct 2. The patient was awakened from anesthesia without difficulty, and taken to the recovery room in satisfactory condition, having tolerated the procedure well. Complications There were no periprocedural complications identified. Surgical Specimen Removed: Yes Specimen sent to Pathology: Yes Surgical Specimen description: Skin. Right anterolateral margin. Anesthetic Plan: GA Grafts, Implants: None Output, Estimated Blood Loss: 10 Blood Administration during jaimes: No Drains: None Catheters: None copies to: Demond Brewster MD; Krysten Yusuf PA-C, Joshua D MD October 29, 2016 15:28
== END 2016-10-29 23:59 | disposition home or self-care (01) ==
LOC: SAS 11:39
PROVIDERS: ATTEND Student in an Organized Health Care Education/Training Program
DX: C49.4 Malignant neoplasm of connective and soft tissue of abdomen (principal); Z87.718 Personal history of other specified (corrected) congenital malformations of genitourinary system; Z87.891 Personal history of nicotine dependence; I12.0 Hypertensive chronic kidney disease with stage 5 chronic kidney disease or end stage renal disease; N18.4 Chronic kidney disease, stage 4 (severe); E03.9 Hypothyroidism, unspecified
CPT/HCPCS: 22902; J0690; J1100; J2250; J2405; J3010; J7120